=== PATIENT | female | born 1990 | race Caucasian/White ===

== ENCOUNTER 2021-10-24 10:26 | Outpatient (CLI) | payer OTHER ==
[2021-10-24 13:23] LABS: BHCG - Serum Negative (NEGATIVE); Pregs Control Background? CLEAR/WHITE (CLR/WHITE); Pregs Control Bar Appear? YES (CONTROL BAR)
== END 2021-10-24 10:27 | disposition home or self-care (01) ==
LOC: CSHLAB 10:26
PROVIDERS: ATTEND Student in an Organized Health Care Education/Training Program
DX: Z01.812 Encounter for preprocedural laboratory examination (principal); Z20.822 Contact with and (suspected) exposure to COVID-19
CPT/HCPCS: 84703; 87811

== ENCOUNTER 2021-10-29 07:17 | Day surgery (SDC) | payer OTHER ==
[2021-10-27 09:16] VITALS: BMI 26.2
[2021-10-29] MEDS ORDERED: metroNIDAZOLE 500 MG in Premix Bag 1 BAG IVPB SCH (07:45)
[2021-10-29] MEDS ORDERED: CeleCOXIB 100 MG CAP ONE (07:53)
[2021-10-29 08:38] LABS: Mean Corpuscular HGB CONC 34.5 g/dL (32.0-36.0); Mean Corpuscular Hemoglobin 31.9 pg (27.0-33.0); Mean Corpuscular Volume 92.6 fl (81.6-98.3); Mean Platelet Volume 10.2 fl (7.4-10.4); Platelet Count 202 10x3/uL (150-450); RBC Distribution Width 11.4 % (11.5-14.5); Red Blood Cell (RBC) Count 3.76 10x6/uL (3.90-5.03); White Blood Cell (WBC) Count 4.4 10x3/uL (3.5-10.5)
[2021-10-29] MEDS ORDERED: Glycopyrrolate 0.2 MG/ML 5 ML SYRINGE ONE (09:13)
[2021-10-29] MEDS ORDERED: Midazolam HCl 2 mg/2 ml Vial ONE (09:13)
[2021-10-29] MEDS ORDERED: Lidocaine 1% PF 5 ML VIAL ONE (09:13)
[2021-10-29] MEDS ORDERED: Ondansetron PF 4 MG/2 ML Vial ONE (09:13)
[2021-10-29] MEDS ORDERED: PROPOFOL 20 ML ONE (09:13)
[2021-10-29] MEDS ORDERED: Fentanyl 250 MCG/5 ML VIAL ONE (09:13)
[2021-10-29] MEDS ORDERED: Rocuronium Bromide 10 MG/ML (10ML VIAL) ONE (09:13)
[2021-10-29] MEDS ORDERED: Ketorolac Tromethamine 30 MG/ML VIAL ONE (09:14)
[2021-10-29] MEDS ORDERED: CEFAZOLIN 2 GM VIAL ONE (09:31)
[2021-10-29] MEDS ORDERED: ePHEDrine Sulfate 50 MG/10 ML VIAL ONE (10:06)
== END 2021-10-29 14:05 | disposition home or self-care (01) ==
LOC: CSHSDC 07:17
PROVIDERS: ATTEND Student in an Organized Health Care Education/Training Program
PROC: 0UT74ZZ Resection of Bilateral Fallopian Tubes, Percutaneous Endoscopic Approach (ICD-10-PCS; principal; 2021-10-29)
DX: Z30.2 Encounter for sterilization (principal); Z15.01 Genetic susceptibility to malignant neoplasm of breast; Z80.41 Family history of malignant neoplasm of ovary; D25.2 Subserosal leiomyoma of uterus; N80.3 Endometriosis of pelvic peritoneum; F41.9 Anxiety disorder, unspecified; F32.A Depression, unspecified; E78.00 Pure hypercholesterolemia, unspecified; Z79.899 Other long term (current) drug therapy; Z20.822 Contact with and (suspected) exposure to COVID-19
CPT/HCPCS: 36415; 85027; 86850; 86900; 86901; 88305; J0690; J1885; J2250; J2405; J2704; J3010